=== PATIENT | male | born 2000 | race Two or more races ===

== ENCOUNTER 2022-09-04 07:57 | Outpatient (CLI) | payer OTHER | END 2022-09-04 23:59 | disposition critical access hospital (66) | LOC: EMS 07:57 | DX: R07.9 Chest pain, unspecified (principal) | CPT/HCPCS: A0425; A0427 ==

== ENCOUNTER 2022-09-04 08:29 | Emergency (ER) | payer OTHER ==
--- NOTE | 2022-09-04 08:56 | XRAY Report ---
PROCEDURE: Chest 1 View X-Ray INDICATIONS: chest pain TECHNIQUE: One view of the chest was acquired. COMPARISON: None. FINDINGS: Surgical changes and devices: None. Lungs and pleura: No pleural effusions or pneumothorax. Lungs are clear. Mediastinum: Mediastinal contours appear normal. Heart size is normal. Bones and chest wall: No suspicious bony lesions. Overlying soft tissues appear unremarkable. IMPRESSION: No acute cardiopulmonary process. Reviewed by: Temo Boothe on 09/04/2022 8:55 AM PDT Approved by: Temo Boothe on 09/04/2022 8:55 AM PDT Station ID: [id number]
--- NOTE | 2022-09-04 08:56 | ED Physician Documentation ---
PD HPI CHEST PAIN - Stated complaint Stated Complaint: CP - Chief complaint Chief Complaint: Cardiac - History obtained from History obtained from: Patient, EMS - Additional information Additional information: The patient is brought to the emergency department by EMS from the [facility] for chief complaint of chest pain on and off for the last couple of days. The patient states that it is a sharp pain that starts in his lower substernal area and ascends about midway up his sternum at which point it radiates across his left chest. He states it comes and goes. It is worse with deep breaths but no activity really seems to trigger it otherwise. The patient states that he has not been doing any repetitive motions with his upper extremities or upper body, and has not had any direct trauma to the area. He states he used to run regularly but had stopped for a while and then just started running again about 5 days ago. He states the pain started a day or two after that. He denies any dyspnea, nausea, sweating, or lightheadedness. He states he is otherwise fairly healthy and does not smoke. No history of blood clot. The patient states he is not having the pain right now. He was seen at the [facility] and they sent him to the ED for further evaluation. PD PAST MEDICAL HISTORY - Present Medications Home Medications: Ambulatory Orders Medication Instructions Recorded Confirmed No Known Home Medications 09/04/22 09/04/22 - Allergies Allergies/Adverse Reactions: Allergies Allergy/AdvReac Type Severity Reaction Status Date / Time No Known Drug Allergies Allergy Verified 09/04/22 08:37 PD ED PE NORMAL - Vitals Vital signs reviewed: Yes - General General: Alert and oriented X 3, No acute distress, Well developed/nourished - HEENT HEENT: Atraumatic, PERRL, EOMI, Moist mucous membranes - Neck Neck: Supple, no meningeal sign - Cardiac Cardiac: RRR, No murmur, Strong equal pulses - Respiratory Respiratory: No respiratory distress, Clear bilaterally - Abdomen Abdomen: Soft, Non tender, Non distended - Derm Derm: Normal color, Warm and dry, No rash - Extremities Extremities: No deformity, No edema, No calf tenderness / cord - Neuro Neuro: Alert and oriented X 3, Other (Grossly intact) - Psych Psych: Normal mood, Normal affect Results - Vitals Vitals: Vital Signs - 24 hr 09/04/22 08:33 Temperature 36.7 C Heart Rate 67 Respiratory 16 Rate Blood Pressure 110/81 H O2 Saturation 99 Oxygen O2 Source Room air - EKG (time done) 0829 EKG releavant findings:: EKG personally interpreted by author of this note. Relevant findings are: Rate: Rate (enter#) (59) Rhythm: NSR [place]: Normal Intervals: Normal IN QRS: Normal Ischemia: Normal ST segments Compare to prior EKG: Old EKG unavailable Computer interpretation: Agree with computer - Labs Labs: Laboratory Tests 09/04/22 08:49 D-Dimer < 200.0 L - Rads (name of study) Chest x-ray Relevant Findings:: Final report received, See rad report (Negative) PD Medical Decision Making - ED course Complexity details: reviewed results, re-evaluated patient, considered differential, d/w patient ED course: The patient overall was very well-appearing and I suspected that most likely, he had a chest wall source of his pain. EKG was performed and unremarkable. I reviewed this as well as chest x-ray and D-dimer and work-up was entirely negative. I felt the patient was stable for discharge home. We have discussed the likely benign nature of his symptoms, as well as the usual indications for return. Departure - Departure Disposition: 01 Home, Self Care Clinical Impression: Chest wall pain Condition: Stable Instructions: ED Chest Pain Costochondritis Comments: Your EKG, chest x-ray, and blood work for blood clot all look good. There is no evidence of a serious cause of your chest pain and most likely, the pain is co chantel from the wall of your chest. Please follow-up with your primary doctor for further concerns. Most likely, this inflammation will blow over on its own, given a few days to a couple of weeks.
[2022-09-04 09:43] VITALS: BP 104/82
== END 2022-09-04 09:40 | disposition home or self-care (01) ==
LOC: EDBD → ED 08:29
DX: R07.89 Other chest pain (principal)
CPT/HCPCS: 36415; 85379; 93005; 99283; 99284